=== PATIENT | female | born 1995 | race African-American/Black ===

== ENCOUNTER 2017-08-28 02:07 | Emergency (ER) | payer MEDICAID, OTHER ==
[~2017-08-28] VITALS: Ht 167.6 cm; Wt 87.0 kg
[2017-08-28] MEDS ORDERED: KETOROLAC 30MG/ML VIAL IV STA (05:55)
[2017-08-28] MEDS ORDERED: SODIUM CHLORIDE 0.9% 1,000 ML IV ONE (05:55)
[2017-08-28 06:20] LABS: HCG SCREEN NEGATIVE
[2017-08-28 06:22] LABS: BASOPHILS % 0.5 % (0.0-2.0); HEMATOCRIT. 36.8 % (36.0-48.0); HEMOGLOBIN. 12.3 g/dL (12.0-16.0); LYMPHOCYTES % 22.7 % (20.0-50.0); MEAN CORPUSCULAR HEMOGLOBIN 28.9 pg (28.0-32.0); MEAN CORPUSCULAR VOLUME 86.3 fL (81.0-99.0); MEAN PLATELET VOLUME 6.7 fl (7.4-10.4); MONOCYTES % 7.9 % (2.0-8.0); NEUTROPHILS % 67.9 % (40.0-76.0); PLATELET 220 x1000/uL (130-400); RED BLOOD CELL COUNT 4.27 mill/uL (4.2-5.4); RED CELL DISTRIBUTION WIDTH 13.6 % (11.6-14.6)
[2017-08-28 06:31] LABS: CARBON DIOXIDE 26 mEq/L (21-32); CHLORIDE 109 mEq/L (98-107); TROPONIN I < 0.02 ng/mL (0.00-0.04)
[2017-08-28] MEDS ORDERED: LIDOCAINE HCL 1% 20ML VIAL (Pyxis) INJ INFIL ONE (06:45)
[2017-08-28 07:00] VITALS: BP 107/62
[2017-08-28] MEDS ORDERED: LIDOCAINE HCL/EPINEPHRINE 1%-EPI 1:100,000 30 ML VIAL INFIL ONE (07:15)
[2017-08-28] MEDS ORDERED: LIDOCAINE HCL 1%/EPI 1:200,000 30 ML VIAL MC ONE (07:15)
== END 2017-08-28 07:52 | disposition home or self-care (01) ==
LOC: ER 02:07
DX: K12.0 Recurrent oral aphthae (principal); L08.89 Other specified local infections of the skin and subcutaneous tissue; F12.10 Cannabis abuse, uncomplicated; Z88.6 Allergy status to analgesic agent
CPT/HCPCS: 10060; 36415; 71010; 80053; 84484; 84703; 85025; 93005; 96361; 96374; 99285; J1885; J3490; J7030; Z7610

== ENCOUNTER 2018-07-22 20:01 | Emergency (ER) | payer MEDICAID ==
[~2018-07-22] VITALS: Ht 165.1 cm; Wt 83.0 kg
[2018-07-23 01:30] VITALS: BP 121/74
== END 2018-07-23 01:57 | disposition home or self-care (01) ==
LOC: ER 22:25
DX: R13.10 Dysphagia, unspecified (principal); J02.9 Acute pharyngitis, unspecified
CPT/HCPCS: 87070; 87430; 99284